=== PATIENT | female | born 1980 | race Caucasian/White ===

== ENCOUNTER → 2017-12-26 | Outpatient (CLI) | payer SELFPAY ==
[2017-12-26 13:41] LABS: BASO % 0.3 % (0.0-1.0); EOS # 0.1 10^3/uL (0.0-0.50); EOS % 1.2 % (0.0-3.0); HEMATOCRIT 30.9 % (36.0-47.0); HEMOGLOBIN 10.5 g/dl (12.0-15.5); IMMATURE GRANULOCYTE % 0.5 % (0-3.0); LYMPH # 1.7 10^3/uL (1.5-4.5); LYMPH % 22.8 % (24.0-44.0); MEAN CORPUSCULAR HEMOGLOBIN 30.6 pg (27.0-33.0); MEAN CORPUSCULAR VOLUME 90.1 fl (80.0-96.0); MONO # 0.5 10^3/uL (0.0-0.8); MONO % 6.9 % (0.0-5.0); NEUTROPHILS # 5.2 10^3/uL (1.8-7.7); NEUTROPHILS % 68.3 % (36.0-66.0); PLATELET COUNT, AUTOMATED 155 10^3/uL (150-450); RED BLOOD COUNT 3.43 10^6/uL (4.00-5.40); RED CELL DISTRIBUTION WIDTH 13.2 % (11.5-14.5); WHITE BLOOD COUNT 7.6 10^3/uL (4.0-10.0)
== END ==
LOC: M SMT 11:02
DX: Z34.83 Encounter for supervision of other normal pregnancy, third trimester (principal); Z36.85 Encounter for antenatal screening for Streptococcus B; Z36.89 Encounter for other specified antenatal screening
CPT/HCPCS: 85025

== ENCOUNTER 2017-12-31 07:23 | Inpatient (IN) | payer SELFPAY ==
[2017-12-31 09:28] LABS: HEMATOCRIT 29.1 % (36.0-47.0); MEAN CORPUSCULAR HEMOGLOBIN 30.9 pg (27.0-33.0); MEAN CORPUSCULAR HGB CONC 34.4 g/dl (32.0-36.5); MEAN CORPUSCULAR VOLUME 89.8 fl (80.0-96.0); PLATELET COUNT, AUTOMATED 135 10^3/uL (150-450); RED BLOOD COUNT 3.24 10^6/uL (4.00-5.40); RED CELL DISTRIBUTION WIDTH 12.9 % (11.5-14.5); WHITE BLOOD COUNT 7.9 10^3/uL (4.0-10.0)
[2017-12-31] MEDS: LR 1,000 ML IV (09:33)
[2017-12-31] MEDS: OXYTOCIN DRIP 30 UNITS in APPROPRIATE DILUENT 1 EA IV ×2 (11:02→20:45)
[2017-12-31 11:03] LABS: HBsAg Prenatal NEGATIVE (NEGATIVE); RUBELLA IgG QUALITATIVE IMMUNE (IMMUNE)
[2017-12-31 11:31] LABS: HEPATITIS C VIRUS ABY INDEX 0.1 INDEX (<0.8)
[2017-12-31 11:32] LABS: HIV 1&2 SCREEN CENTAUR NEGATIVE (NEGATIVE)
[2017-12-31] MEDS ORDERED: MEASLES,MUMPS,RUBELLA VACCINE INJ (MMR-II) (90707) SC (20:45)
[2017-12-31] MEDS ORDERED: DOCUSATE SODIUM 100 MG CAP PO (20:45)
[2017-12-31] MEDS ORDERED: ACETAMINOPHEN 500 MG TAB PO (20:45)
[2017-12-31] MEDS ORDERED: DIBUCAINE 1% OINTMENT 30GM TOP (20:45)
[2017-12-31] MEDS ORDERED: METHYLERGONOVINE MALEATE 0.2 MG TAB PO (20:45)
[2017-12-31] MEDS ORDERED: ONDANSETRON 4MG/2ML VIAL (J2405) IV (20:45)
[2018-01-01] MEDS: IBUPROFEN 800 MG TAB PO (01:57)
[2018-01-01] MEDS: PRENATAL VITAMINS CHEWABLE TABLET PO (08:57)
[2018-01-02 09:53] LABS: FETAL SCREEN PROF. 1 1
[2018-01-02] MEDS: PRENATAL VITAMINS CHEWABLE TABLET PO (10:05)
[2018-01-02] MEDS: RHOGAM 300 MCG (1500 IU) INJ (J2790) IM (10:05)
== END 2018-01-02 12:40 | disposition home or self-care (01) | DRG 560 ==
LOC: M LDO 07:23 → M LDI 07:50 → M OBS 23:52
PROVIDERS: Specialist
PROC: 10E0XZZ Delivery of Products of Conception, External Approach (ICD-10-PCS; principal; 2017-12-31)
PROC: 30233S1 Transfusion of Nonautologous Globulin into Peripheral Vein, Percutaneous Approach (ICD-10-PCS; 2018-01-02)
DX: O42.013 Preterm premature rupture of membranes, onset of labor within 24 hours of rupture, third trimester (principal); O69.2XX0 Labor and delivery complicated by other cord entanglement, with compression, not applicable or unspecified; Z37.0 Single live birth; Z3A.36 36 weeks gestation of pregnancy; O69.81X0 Labor and delivery complicated by cord around neck, without compression, not applicable or unspecified